=== PATIENT | female | born 2000 | race Asian ===

== ENCOUNTER 2021-08-28 14:12 | Emergency (ER) | payer OTHER, SELFPAY ==
[2021-08-28 14:33] VITALS: BP 132/72; PULSE 77; RESP 19; TEMP 37.1; O2SAT 99; BMI 16.8
== END 2021-08-28 16:09 | disposition left against medical advice (07) ==
PROVIDERS: Emergency Provider Emergency Medicine
CPT/HCPCS: 99281

== ENCOUNTER → 2021-11-26 16:02 | Outpatient (CLI) | payer OTHER, SELFPAY ==
[2021-11-26 16:35] LABS: COVID19 -Nasal RAPID POSITIVE (Negative)
== END ==
PROVIDERS: Visit Provider Nurse Practitioner Family
DX: U07.1 COVID-19 (principal)
CPT/HCPCS: 87635